=== PATIENT | female | born 1995 | race African-American/Black ===

== ENCOUNTER 2023-02-16 09:31 | Emergency (ER) | payer OTHER ==
--- NOTE | 2023-02-16 11:33 | ER ---
Nurse's Notes [facility] Name: Michelle Reddy Age: 27 yrs Sex: Female : 1995 Arrival Date: 02/16/2023 Time: 09:31 Bed 15 Private MD: Diagnosis: Dehiscence of surgical wound Presentation: 02/16 09:53 Chief complaint: Patient states: had a panniculectomy on Feb [address] Proctor, in [facility], her sutures are open and it's bleeding. Coronavirus screen: At this time, the client does not indicate any symptoms associated with coronavirus-19. Ebola Screen: Patient negative for fever greater than or equal to 101.5 degrees Fahrenheit, and additional compatible Ebola Virus Disease symptoms Patient denies exposure to infectious person. Patient denies travel to an Ebola-affected area in the 21 days before illness onset. No symptoms or risks identified at this time. Initial Sepsis Screen: Does the patient meet any 2 criteria? No. Patient's initial sepsis screen is negative. Does the patient have a suspected source of infection? No. Patient's initial sepsis screen is negative. Risk Assessment: Do you want to hurt yourself or someone else? Patient reports no desire to harm self or others. Onset of symptoms was February 13, 2023. 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 - Social history:: Smoking status: Patient denies any tobacco usage or history of. Screenin:06 [facility] ED Fall Risk Assessment (Adult) History of falling in the last 3 months, mb9 including since admission No falls in past 3 months (0 pts) Confusion or Disorientation No (0 pts) Intoxicated or Sedated No (0 pts) Impaired Gait No (0 pts) Mobility Assist Device Used No (0 pt) Altered Elimination No (0 pt) Score/Fall Risk Level 0 - 2 = Low Risk Oriented to surroundings, Maintained a safe environment, Educated pt \T\ family on fall prevention, incl call for assistance when getting out of bed. Abuse screen: Denies threats or abuse. Nutritional screening: No deficits noted. Tuberculosis screening: No symptoms or risk factors identified. Assessment: 10:13 General: Appears in no apparent distress. Behavior is calm, cooperative. Pain: mb9 Complains of pain in abdomen Pain does not radiate. Quality of pain is described as throbbing, Pain began 2-3 days ago. Is intermittent, Aggravated by increased activity, repositioning. Neuro: Self Agitation-Sedation Scale (RASS): 0 - Alert and Calm Level of Consciousness is awake, alert, obeys commands, Oriented to person, place, time, situation, Appropriate for age. Cardiovascular: Patient's skin is warm and dry. Respiratory: Airway is patent Respiratory effort is even, unlabored, Respiratory pattern is regular, symmetrical. GI: Abdomen is obese, Bowel sounds present X 4 quads. Abd is soft and non tender X 4 quads. : No signs and/or symptoms were reported regarding the genitourinary system. EENT: No signs and/or symptoms were reported regarding the EENT system. Derm: surgical incision noted to lower abdominal. Serosanguinous and purulent drainage noted. PARAM drains on bilateral side. Musculoskeletal: Range of motion: intact in all extremities. 11:20 Reassessment: No changes from previously documented assessment. Patient and/or family mb9 updated on plan of care and expected duration. Pain level reassessed. Patient is alert, oriented x 3, equal unlabored respirations, skin warm/dry/pink. Vital Signs: 09:53 BP 117 / 78; Pulse 86; Resp 16; Temp 98.1; Pulse Ox 98% on R/A; iw ED Course: 09:36 Patient arrived in ED. im 09:36 Gabriella Mahoney FNP is PHCP. jh7 09:36 Neri Guardado MD is Attending Physician. jh7 09:55 Triage completed. iw 09:55 Arm band placed on. iw 10:06 Felicia Rosales, JEFFRY is Primary Nurse. mb9 10:06 Placed in gown. Bed in low position. Call light in reach. Side rails up X 1. Client mb9 placed on continuous cardiac and pulse oximetry monitoring. NIBP monitoring applied. 10:15 No provider procedures requiring assistance completed. mb9 11:48 Patient did not have IV access during this emergency room visit. mb9 Administered Medications: No medications were administered Medication: 10:06 VIS not applicable for this client. mb9 Outcome: 11:33 Discharge ordered by . chaim 11:48 Discharged to home ambulatory, mb9 11:48 Condition: stable 11:48 Discharge instructions given to patient, Instructed on discharge instructions, follow up and referral plans. Demonstrated understanding of instructions, follow-up care, 11:48 Patient left the ED. mb9 Signatures: Karley Logan, RN RN iw Gabriella Mahoney, FACILITY SALES AND ADMIN FACILITY SALES AND ADMIN 7 Felicia Rosales RN RN mb9 Josselyn Robles
--- NOTE | 2023-02-16 11:33 | EDPHYS ---
Physician Documentation [facility] Name: Michelle Ornelasrubin Age: 27 yrs Sex: Female : 1995 Arrival Date: 02/16/2023 Time: : Bed 15 Private MD: ED Physician Neri Guardado HPI: 02/16 09:55 This 27 yrs old Female presents to ER via Wheelchair with complaints of open surgical jh7 wound. 09:55 Onset: The symptoms/episode began/occurred last night. Associated signs and symptoms: jh7 Pertinent positives: abdominal pain, Pertinent negatives: chest pain, constipation, dysuria, fever, headache. pt had a pannulectomy on the performed at [facility] by Dr. Jsoelin Proctor. She reports that her incision over her lower abdomen came open last night and there is drainage present. Denies fever. Reports that she called her surgeon's office and they have not returned her call.. 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 - Social history:: Smoking status: Patient denies any tobacco usage or history of. ROS: 09:55 Constitutional: Negative for fever, chills, and weight loss, Eyes: Negative for injury, jh7 pain, redness, and discharge, Neck: Negative for injury, pain, and swelling, Cardiovascular: Negative for chest pain, palpitations, and edema, Respiratory: Negative for shortness of breath, cough, wheezing, and pleuritic chest pain, Back: Negative for injury and pain, MS/Extremity: Negative for injury and deformity, Neuro: Negative for headache, weakness, numbness, tingling, and seizure, 09:55 Skin: Positive for Surgical incision dehiscence, Negative for cellulitis, erythema, 09:55 All other systems are negative, Exam: :55 Constitutional: This is a well developed, well nourished patient who is awake, alert, jh7 and in no acute distress. Head/Face: Normocephalic, atraumatic. Eyes: Pupils equal round and reactive to light, extra-ocular motions intact. Lids and lashes normal. Conjunctiva and sclera are non-icteric and not injected. Cornea within normal limits. Periorbital areas with no swelling, redness, or edema. Neck: Trachea midline, no thyromegaly or masses palpated, and no cervical lymphadenopathy. Supple, full range of motion without nuchal rigidity, or vertebral point tenderness. No Meningismus. Cardiovascular: Regular rate and rhythm with a normal S1 and S2. No gallops, murmurs, or rubs. Normal PMI, no JVD. No pulse deficits. Respiratory: Lungs have equal breath sounds bilaterally, clear to auscultation and percussion. No rales, rhonchi or wheezes noted. No increased work of breathing, no retractions or nasal flaring. Back: No spinal tenderness. No costovertebral tenderness. Full range of motion. 09:55 MS/ Extremity: Pulses equal, no cyanosis. Neurovascular intact. Full, normal range of motion. Neuro: Awake and alert, GCS 15, oriented to person, place, time, and situation. Motor strength 5/5 in all extremities. Sensory grossly intact. Normal gait. 09:55 Abdomen/GI: Inspection: obese scar(s), are noted in the suprapubic area, Vertical incision scar spanning the entire abdomen with no surrounding erythema, drainage, or tenderness to palpation. There is a hip to hip horizontal scar in the suprapubic region that has dehisced and has both purulent and serosanguineous drainage. There are 2 Isaac-Lopez drains on both sides of the abdomen with about 10 to 15 mL of serosanguineous drainage. There is no surrounding erythema/cellulitis. No active bleeding at this time., 09:55 Skin: Wound recheck: Surgical incisions described and abdominal assessment, Vital Signs: 09:53 BP 117 / 78; Pulse 86; Resp 16; Temp 98.1; Pulse Ox 98% on R/A; iw MDM: 09:36 Patient medically screened. chaim 10:00 ED course: Called [facility] surgical center and spoke to the nurse Salome. She stated that jh7 she would notify the surgeon working today and would have them call me back.. 11:15 Differential diagnosis: Surgical wound infection, surgical wound dehiscence, surgical jh7 complication. Data reviewed: vital signs, nurses notes. Counseling: I had a detailed discussion with the patient and/or guardian regarding the historical points, exam findings, and any diagnostic results supporting the discharge/admit diagnosis, the need for outpatient follow up, a plastic surgeon, to return to the emergency department if symptoms worsen or persist or if there are any questions or concerns that arise at home. ED course: Spoke to the surgeon on-call from the patient cell phone who advised that we change the patient's dressing, discharge her, and have her follow-up with the patient's surgeon today at 3:30pm.. 02/16 11:32 Order name: Dressing - Wound; Complete Time: 11:33 jh7 Administered Medications: No medications were administered Disposition Summary: 02/16/23 11:33 Discharge Ordered Notes: Location: Home [facility] Problem: new [facility] Symptoms: are unchanged [facility] Condition: Stable jh7 Diagnosis - Dehiscence of surgical wound [facility] Followup: [facility] - With: Private Physician - When: Today - Reason: Further diagnostic work-up Discharge Instructions: - Discharge Summary Sheet [facility] - Wound Dehiscence [facility] - Surgical Drain Home Care [facility] Forms: - Medication Reconciliation Form [facility] - Thank You Letter [facility] - Patient Portal Instructions [facility] - Leadership Thank You Letter [facility] Addendum: 02/17/2023 20:16 Co-signature as Attending Physician, Neri Guardado MD. e c2 Signatures: Karley Lgoan, RN RN Gabriella Mahoney FNP CO CHAIRMAN 7 Felicia Rosales RN RN mb9 Neri Guardado MD MD ec2
== END 2023-02-16 11:48 | disposition home or self-care (01) ==
LOC: ER 09:31
DX: T81.31XA Disruption of external operation (surgical) wound, not elsewhere classified, initial encounter (principal)
CPT/HCPCS: 99283